=== PATIENT | female | born 1955 | race Caucasian/White ===

== ENCOUNTER 2019-04-26 21:07 | Emergency (ER) | payer OTHER ==
[2019-04-26 21:18] VITALS: BP 136/71
[2019-04-26] MEDS ORDERED: Cephalexin CAP* 500 MG PO ONE (21:30)
[2019-04-26] MEDS ORDERED: diPHENhydraMINE PO* 25 MG PO ONE (21:31)
--- NOTE | 2019-04-26 21:38 | UC ---
Skin Complaint HPI - HPI Summary HPI Summary: bee sting to left index finger with persistent swelling, redness, hand is swollen, with itching. finger blotching and ecchymotic - History of Current Complaint Chief Complaint: UCSkin Time Seen by Provider: 04/26/19 21:15 Stated Complaint: BEE STING Hx Obtained From: Patient Hx Last Menstrual Period: post ?: No Onset/Duration: Sudden Onset, Lasting Days Skin Exposure Onset/Duration: Weeks Ago Timing: Constant Onset Severity: Moderate Current Severity: Moderate Pain Intensity: 3 Location: Generalized, Hand (Left) Character: Swelling, Pruritus, Redness, Painful Aggravating Factor(s): Touch Alleviating Factor(s): Nothing Associated Signs & Symptoms: Positive: Rash, Tenderness Related History: Possible Reaction to: Insect - Allergy/Home Medications Allergies/Adverse Reactions: Allergies Allergy/AdvReac Type Severity Reaction Status Date / Time Sulfa (Sulfonamide Allergy hives and Verified 04/26/19 21:18 Antibiotics) chills Home Medications: Home Medications Pantoprazole TAB * [Protonix TAB*] 1 tab PO DAILY 04/26/19 [History Confirmed ] PMH/Surg Hx/FS Hx/Imm Hx Previously Healthy: Yes - Surgical History Surgical History: Yes Surgery Procedure, Year, and Place: wisdom teetyh removed - Family History Known Family History: Positive: Hypertension - Social History Alcohol Use: Weekly Substance Use Type: None Smoking Status (MU): Former Smoker Review of Systems All Other Systems Reviewed And Are Negative: Yes Skin: Positive: Rash, Bruising - bruising, Other - redness Is Patient Immunocompromised?: No Physical Exam Triage Information Reviewed: Yes Appearance: Well-Appearing, Well-Nourished, Pain Distress Vital Signs: Initial Vital Signs Temp 98 F 04/26/19 21:10 Pulse 92 04/26/19 21:10 Resp 16 04/26/19 21:10 BP 136/71 04/26/19 21:10 Pulse Ox 98 04/26/19 21:10 Vital Signs Reviewed: Yes Eye Exam: Normal ENT Exam: Normal Dental Exam: Normal Neck exam: Normal Respiratory Exam: Normal Respiratory: Positive: Chest non-tender, Lungs clear, Normal breath sounds Cardiovascular Exam: Normal Cardiovascular: Positive: RRR, No Murmur, Pulses Normal Musculoskeletal Exam: Normal Neurological Exam: Normal Psychological Exam: Normal Skin: Positive: Other - bruising of medial aspect of the nd finger, erythema of the 2nd and 3rd fingers in to the dorsum of the left hand Course/Dx - Course Course Of Treatment: hx obtained, exam performed ,meds reviewed, treated for cellulitis and pruritis of the left hand - Differential Diagnoses - Skin Complaint Differential Diagnoses: Abscess, Cellulitis, Contact Dermatitis - Diagnoses Provider Diagnosis: Cellulitis of hand, left Discharge ED - Sign-Out/Discharge Documenting (check all that apply): Patient Departure All imaging exams completed and their final reports reviewed: No Studies - Discharge Plan Condition: Stable Disposition: HOME Prescriptions: Cephalexin CAP* [Keflex CAP*] 500 mg PO TID #20 cap Patient Education Materials: Cellulitis (ED) Referrals: Ban Wood MD [Primary Care Provider] - Additional Instructions: 1. take the medication as prescribed. 2. Soak hand in warm water daily 3. FOllow up in ER if the redness continues to climb up the hand and arm even with treatment. - Billing Disposition and Condition Condition: STABLE Disposition: Home
== END 2019-04-26 21:50 | disposition home or self-care (01) ==
LOC: UCEAST 21:07
DX: T63.441A Toxic effect of venom of bees, accidental (unintentional), initial encounter (principal); Y92.9 Unspecified place or not applicable; L03.113 Cellulitis of right upper limb; Z88.2 Allergy status to sulfonamides
CPT/HCPCS: 99212; A9270-GY; G0463